=== PATIENT | female | born 1970 | race Caucasian/White ===

== ENCOUNTER 2020-07-06 09:50 | Outpatient (CLI) | payer OTHER, BC ==
[2020-07-07 02:28] LABS: SARS-CoV-2 PCR by NAA Not Detected (NotDetected)
== END 2020-07-06 09:51 | disposition home or self-care (01) ==
LOC: CSHLAB 09:50
PROVIDERS: ATTEND Orthopaedic Surgery
DX: Z01.818 Encounter for other preprocedural examination (principal); Z20.822 Contact with and (suspected) exposure to COVID-19; M24.10 Other articular cartilage disorders, unspecified site; M21.162 Varus deformity, not elsewhere classified, left knee
CPT/HCPCS: 87635; 93005; 93010; U0003; U0005

== ENCOUNTER 2020-07-09 10:09 | Day surgery (SDC) | payer OTHER, BC ==
[2020-07-08 10:04] VITALS: BMI 26.3
[2020-07-09] MEDS ORDERED: Lidocaine 1% MPF 2 ML VIAL ONE (11:13)
[2020-07-09] MEDS ORDERED: PROPOFOL 20 ML ONE (11:28)
[2020-07-09] MEDS ORDERED: Lidocaine 2% PF 5 ML VIAL ONE (11:29)
[2020-07-09] MEDS ORDERED: Bupivacaine PF 0.5% 30 ML VIAL ONE (12:31)
[2020-07-09] MEDS ORDERED: EPINEPHrine 1 MG/ML AMP ONE (12:31)
[2020-07-09] MEDS ORDERED: Fentanyl 100 MCG/2 ML VIAL ONE (13:14)
[2020-07-09] MEDS ORDERED: Ketorolac Tromethamine 30 MG/ML VIAL ONE (13:14)
[2020-07-09] MEDS ORDERED: Morphine 4 MG/ML VIAL ONE ×2 (14:24→14:35)
== END 2020-07-09 15:40 | disposition home or self-care (01) ==
LOC: CSHSDC 10:09
PROVIDERS: ATTEND Orthopaedic Surgery
PROC: 0SBD4ZZ Excision of Left Knee Joint, Percutaneous Endoscopic Approach (ICD-10-PCS; principal; 2020-07-09)
DX: M23.92 Unspecified internal derangement of left knee (principal); Z79.899 Other long term (current) drug therapy; Z90.710 Acquired absence of both cervix and uterus
CPT/HCPCS: J0171; J0690; J1885; J2001; J2270; J2704; J3010; S0020

== ENCOUNTER 2021-10-20 11:22 | Emergency (ER) | payer BC ==
[2021-10-20] MEDS ORDERED: predniSONE 20 MG TAB ONE (12:16)
[2021-10-20] MEDS ORDERED: hydrOXYzine 25 MG TAB ONE (12:16)
== END 2021-10-20 12:20 | disposition home or self-care (01) ==
LOC: CSHERS 11:22
DX: L23.7 Allergic contact dermatitis due to plants, except food (principal)
CPT/HCPCS: 99282; J7512